=== PATIENT | male | born 1975 | race Caucasian/White ===

== ENCOUNTER 2021-01-30 14:56 | Inpatient (IN) | payer MEDICAID ==
[~2021-01-30] VITALS: Ht 180.3 cm; Wt 61.4 kg
[2021-01-30] MEDS ORDERED: LORazepam 2 MG TABLET PO ONE (18:15)
[2021-01-30 18:35] LABS: BASOPHILS % (AUTO) 1.1 % (0.0-2.0); EOSINOPHILS % (AUTO) 1.6 % (1.0-6.0); HEMATOCRIT 41.5 % (41-53); HEMOGLOBIN 13.6 g/dL (13.5-17.5); LYMPHOCYTES # (AUTO) 1.9 K/uL (1.0-4.8); LYMPHOCYTES % (AUTO) 22.7 % (22.0-44.0); MEAN CORPUSCULAR HEMOGLOBIN 29.6 pg (26.0-34.0); MEAN CORPUSCULAR HGB CONC 32.9 G/dL (31.0-37.0); MEAN CORPUSCULAR VOLUME 90 fL (80-100); MONOCYTES # (AUTO) 0.9 K/uL (0.1-1.0); MONOCYTES % (AUTO) 10.4 % (2.0-9.0); NEUTROPHILS # (AUTO) 5.3 K/uL (1.8-7.7); NEUTROPHILS % (AUTO) 64.2 % (40.0-70.0); PLATELET COUNT (AUTO) 301 K/uL (150-450); RED BLOOD CELL COUNT(AUTO) 4.61 MIL/uL (4.50-5.90); RED CELL DISTRIBUTION WIDTH 13.7 % (11.5-14.5)
[2021-01-30 18:53] LABS: ANION GAP 4 mmol/L (8-16); CARBON DIOXIDE 32 mmol/L (22-29); CHLORIDE 107 mmol/L (98-107); CREATININE 0.74 mg/dL (0.60-1.30); GLOMERULAR FILTR. RATE CALC > 60 mL/min (>60); GLUCOSE,RANDOM 89 mg/dL (70-110); POTASSIUM 3.6 mmol/L (3.5-5.1); SODIUM SERUM 143 mmol/L (136-145); UREA NITROGEN, BLOOD 12 mg/dL (7-18)
[2021-01-30 18:58] LABS: ALANINE AMINOTRANSFERASE 24 U/L (12-78); ALBUMIN 3.7 g/dL (3.4-5.0); ALKALINE PHOSPHATASE 67 U/L (46-116); ASPARTATE AMINOTRANSFERASE 18 U/L (15-37); BILIRUBIN,TOTAL 0.4 mg/dL (0.1-1.0); TOTAL PROTEIN, SERUM 7.3 g/dL (6.4-8.2)
[2021-01-30] MEDS ORDERED: PROMETHAZINE HCL 25 MG TABLET PO PRN ×2 (19:15→21:30)
[2021-01-30] MEDS ORDERED: HydrOXYzine PAMOATE 50 MG CAPSULE PO PRN (19:15)
[2021-01-30] MEDS ORDERED: TUBERCULIN, PURIFIED PROTEIN DERIVATIVE 5 TU/0.1 ML SYRINGE ID ONE (19:15)
[2021-01-30] MEDS ORDERED: GuaiFENesin/D-METHORPHAN [SUGAR-FREE] 200-20MG/10 ML SYRUP UDCUP PO PRN (19:15)
[2021-01-30 19:50] LABS: COVID AG,FIA SOURCE NASOPHARYNGEAL
[2021-01-30] MEDS ORDERED: MAGNESIUM HYDROXIDE SUSPENSION 30 ML UDCUP PO PRN (21:30)
[2021-01-30] MEDS ORDERED: ACETAMINOPHEN 325 MG TABLET PO PRN (21:30)
[2021-01-30] MEDS ORDERED: LOPERAMIDE HCL 2 MG CAPSULE PO PRN (21:30)
[2021-01-30] MEDS ORDERED: MAG HYDROX/AL HYDROX/SIMETH ES 30 ML SUSPENSION UDCUP PO PRN (21:30)
[2021-01-30] MEDS: OLANZapine 5 MG RAPDIS TABLET PO SCH (23:43)
[2021-01-31 00:30] VITALS: BP 110/79
[2021-01-31] MEDS: THIAMINE 100 MG TABLET PO SCH ×3 (08:48→17:13)
[2021-01-31] MEDS: OMEGA-3/DHA/EPA/FISH OIL 1,000 MG CAPSULE PO SCH (08:48)
[2021-01-31] MEDS: MULTIVITAMINS WITH MINERALS, THERAPEUTIC TABLET PO SCH (08:49)
[2021-01-31] MEDS: FLUoxetine HCL 20 MG CAPSULE PO SCH (08:49)
[2021-01-31] MEDS: FOLIC ACID 1 MG TABLET PO SCH (08:49)
[2021-01-31] MEDS: NALTREXONE HCL 50 MG TABLET PO SCH (08:49)
[2021-01-31 15:16] LABS: AMPHET/METH SCREEN,URINE POSITIVE (NEGATIVE); BARBITURATE SCREEN, URINE NEGATIVE (NEGATIVE); BENZODIAZEPINES SCREEN,URINE NEGATIVE (NEGATIVE); CANNABINOID SCREEN,URINE POSITIVE (NEGATIVE); COCAINE SCREEN,URINE NEGATIVE (NEGATIVE); METHADONE SCREEN, URINE NEGATIVE (NEGATIVE); OPIATE SCREEN,URINE NEGATIVE (NEGATIVE)
[2021-01-31 15:18] LABS: PHENCYCLIDINE SCREEN,URINE NEGATIVE (NEGATIVE)
[2021-01-31 16:00] VITALS: BP 98/69
[2021-01-31] MEDS: OLANZapine 5 MG RAPDIS TABLET PO PRN (17:14)
[2021-01-31] MEDS: OLANZapine 5 MG RAPDIS TABLET PO SCH (20:25)
[2021-01-31] MEDS: MELATONIN 5 MG TABLET PO SCH (20:30)
[2021-02-01 08:51] VITALS: BP 112/65
[2021-02-01] MEDS: FLUoxetine HCL 20 MG CAPSULE PO SCH (09:28)
[2021-02-01] MEDS: OMEGA-3/DHA/EPA/FISH OIL 1,000 MG CAPSULE PO SCH (09:28)
[2021-02-01] MEDS: FOLIC ACID 1 MG TABLET PO SCH (09:28)
[2021-02-01] MEDS: MULTIVITAMINS WITH MINERALS, THERAPEUTIC TABLET PO SCH (09:28)
[2021-02-01] MEDS: THIAMINE 100 MG TABLET PO SCH ×2 (09:28→17:32)
[2021-02-01] MEDS: NALTREXONE HCL 50 MG TABLET PO SCH (09:30)
[2021-02-01 17:00] VITALS: BP 109/64
[2021-02-01] MEDS: OLANZapine 5 MG RAPDIS TABLET PO PRN (17:33)
[2021-02-01] MEDS: MELATONIN 5 MG TABLET PO SCH (21:30)
[2021-02-01] MEDS: OLANZapine 10 MG RAPDIS TABLET PO SCH (21:30)
[2021-02-02 08:52] VITALS: BP 110/62
[2021-02-02] MEDS: THIAMINE 100 MG TABLET PO SCH ×2 (09:07→16:17)
[2021-02-02] MEDS: OMEGA-3/DHA/EPA/FISH OIL 1,000 MG CAPSULE PO SCH (09:07)
[2021-02-02] MEDS: FLUoxetine HCL 20 MG CAPSULE PO SCH (09:07)
[2021-02-02] MEDS: MULTIVITAMINS WITH MINERALS, THERAPEUTIC TABLET PO SCH (09:07)
[2021-02-02] MEDS: FOLIC ACID 1 MG TABLET PO SCH (09:07)
[2021-02-02] MEDS: NALTREXONE HCL 50 MG TABLET PO SCH (09:07)
[2021-02-02 16:39] VITALS: BP 124/74
[2021-02-02] MEDS: MELATONIN 5 MG TABLET PO SCH (20:13)
[2021-02-02] MEDS: OLANZapine 10 MG RAPDIS TABLET PO SCH (20:13)
[2021-02-03 08:00] VITALS: BP 113/75
[2021-02-03] MEDS: NALTREXONE HCL 50 MG TABLET PO SCH (08:47)
[2021-02-03] MEDS: OMEGA-3/DHA/EPA/FISH OIL 1,000 MG CAPSULE PO SCH (08:48)
[2021-02-03] MEDS: THIAMINE 100 MG TABLET PO SCH ×2 (08:48→16:05)
[2021-02-03] MEDS: MULTIVITAMINS WITH MINERALS, THERAPEUTIC TABLET PO SCH (08:48)
[2021-02-03] MEDS: FOLIC ACID 1 MG TABLET PO SCH (08:49)
[2021-02-03] MEDS: FLUoxetine HCL 20 MG CAPSULE PO SCH (08:49)
[2021-02-03] MEDS: NICOTINE 21 MG/24 HOUR PATCH TD SCH (08:50)
[2021-02-03] MEDS ORDERED: NICOTINE 21 MG/24 HOUR PATCH TD SCH (09:00)
[2021-02-03 17:09] VITALS: BP 109/67
[2021-02-03] MEDS: OLANZapine 10 MG RAPDIS TABLET PO SCH (20:11)
[2021-02-03] MEDS: DIVALPROEX SODIUM 250 MG ER TABLET PO SCH (20:11)
[2021-02-03] MEDS: MELATONIN 5 MG TABLET PO SCH (20:11)
[2021-02-04 02:00] VITALS: BP 106/65
[2021-02-04] MEDS: FOLIC ACID 1 MG TABLET PO SCH (10:01)
[2021-02-04] MEDS: NALTREXONE HCL 50 MG TABLET PO SCH (10:01)
[2021-02-04] MEDS: THIAMINE 100 MG TABLET PO SCH ×2 (10:01→16:09)
[2021-02-04] MEDS: MULTIVITAMINS WITH MINERALS, THERAPEUTIC TABLET PO SCH (10:01)
[2021-02-04] MEDS: NICOTINE 21 MG/24 HOUR PATCH TD SCH (10:02)
[2021-02-04] MEDS: FLUoxetine HCL 20 MG CAPSULE PO SCH (10:02)
[2021-02-04] MEDS: OMEGA-3/DHA/EPA/FISH OIL 1,000 MG CAPSULE PO SCH (10:05)
[2021-02-04 16:00] VITALS: BP 116/72
[2021-02-04] MEDS: DIVALPROEX SODIUM 250 MG ER TABLET PO SCH (20:11)
[2021-02-04] MEDS: MELATONIN 5 MG TABLET PO SCH (20:11)
[2021-02-04] MEDS: OLANZapine 10 MG RAPDIS TABLET PO SCH (20:12)
[2021-02-05 08:25] VITALS: BP 108/74
[2021-02-05] MEDS: MULTIVITAMINS WITH MINERALS, THERAPEUTIC TABLET PO SCH (09:27)
[2021-02-05] MEDS: OMEGA-3/DHA/EPA/FISH OIL 1,000 MG CAPSULE PO SCH (09:27)
[2021-02-05] MEDS: FLUoxetine HCL 20 MG CAPSULE PO SCH (09:27)
[2021-02-05] MEDS: FOLIC ACID 1 MG TABLET PO SCH (09:27)
[2021-02-05] MEDS: NICOTINE 21 MG/24 HOUR PATCH TD SCH (09:28)
[2021-02-05] MEDS: NALTREXONE HCL 50 MG TABLET PO SCH (09:28)
[2021-02-05] MEDS: THIAMINE 100 MG TABLET PO SCH ×2 (09:28→16:06)
[2021-02-05 13:17] LABS: COVID AG,FIA SOURCE NASAL SWAB
[2021-02-05 16:00] VITALS: BP 100/65
[2021-02-05] MEDS: MELATONIN 5 MG TABLET PO SCH (20:13)
[2021-02-05] MEDS: OLANZapine 10 MG RAPDIS TABLET PO SCH (20:14)
[2021-02-05] MEDS: DIVALPROEX SODIUM 250 MG ER TABLET PO SCH (21:14)
[2021-02-06] MEDS: THIAMINE 100 MG TABLET PO SCH ×2 (09:28→16:05)
[2021-02-06] MEDS: FLUoxetine HCL 20 MG CAPSULE PO SCH (09:28)
[2021-02-06] MEDS: OMEGA-3/DHA/EPA/FISH OIL 1,000 MG CAPSULE PO SCH (09:28)
[2021-02-06] MEDS: FOLIC ACID 1 MG TABLET PO SCH (09:28)
[2021-02-06] MEDS: MULTIVITAMINS WITH MINERALS, THERAPEUTIC TABLET PO SCH (09:28)
[2021-02-06] MEDS: NICOTINE 21 MG/24 HOUR PATCH TD SCH (09:29)
[2021-02-06] MEDS: NALTREXONE HCL 50 MG TABLET PO SCH (09:29)
[2021-02-06 17:19] VITALS: BP 130/80
[2021-02-06] MEDS: DIVALPROEX SODIUM 250 MG ER TABLET PO SCH (20:01)
[2021-02-06] MEDS: OLANZapine 10 MG RAPDIS TABLET PO SCH (20:01)
[2021-02-06] MEDS: MELATONIN 5 MG TABLET PO SCH (20:01)
[2021-02-06] MEDS: ZOLPIDEM TARTRATE 10 MG TABLET PO PRN (22:30)
[2021-02-07 08:30] VITALS: BP 115/77
[2021-02-07] MEDS: NALTREXONE HCL 50 MG TABLET PO SCH (08:45)
[2021-02-07] MEDS: THIAMINE 100 MG TABLET PO SCH ×2 (08:45→17:19)
[2021-02-07] MEDS: FOLIC ACID 1 MG TABLET PO SCH (08:46)
[2021-02-07] MEDS: NICOTINE 21 MG/24 HOUR PATCH TD SCH (08:46)
[2021-02-07] MEDS: FLUoxetine HCL 20 MG CAPSULE PO SCH (08:46)
[2021-02-07] MEDS: OMEGA-3/DHA/EPA/FISH OIL 1,000 MG CAPSULE PO SCH (08:46)
[2021-02-07] MEDS: MULTIVITAMINS WITH MINERALS, THERAPEUTIC TABLET PO SCH (08:46)
[2021-02-07 16:57] VITALS: BP 103/64
[2021-02-07] MEDS: OLANZapine 5 MG RAPDIS TABLET PO PRN (17:19)
[2021-02-07] MEDS: MELATONIN 5 MG TABLET PO SCH (21:01)
[2021-02-07] MEDS: OLANZapine 10 MG RAPDIS TABLET PO SCH (21:01)
[2021-02-07] MEDS: DIVALPROEX SODIUM 250 MG ER TABLET PO SCH (21:02)
[2021-02-08 00:30] VITALS: BP 120/86
[2021-02-08] MEDS: LORazepam 2 MG TABLET PO PRN (00:37)
[2021-02-08] MEDS: ZOLPIDEM TARTRATE 10 MG TABLET PO PRN (00:37)
[2021-02-08 09:00] VITALS: BP 113/71
[2021-02-08] MEDS: FOLIC ACID 1 MG TABLET PO SCH ×2 (09:00→09:14)
[2021-02-08] MEDS: NALTREXONE HCL 50 MG TABLET PO SCH ×2 (09:00→09:14)
[2021-02-08] MEDS: FLUoxetine HCL 20 MG CAPSULE PO SCH ×2 (09:00→09:14)
[2021-02-08] MEDS: THIAMINE 100 MG TABLET PO SCH ×3 (09:00→17:15)
[2021-02-08] MEDS: MULTIVITAMINS WITH MINERALS, THERAPEUTIC TABLET PO SCH ×2 (09:00→09:14)
[2021-02-08] MEDS: NICOTINE 21 MG/24 HOUR PATCH TD SCH ×2 (09:00→09:15)
[2021-02-08] MEDS: OMEGA-3/DHA/EPA/FISH OIL 1,000 MG CAPSULE PO SCH ×2 (09:00→09:14)
[2021-02-08] MEDS: MELATONIN 5 MG TABLET PO SCH (20:54)
[2021-02-08] MEDS: OLANZapine 10 MG RAPDIS TABLET PO SCH (20:54)
[2021-02-08] MEDS: MIRTAZAPINE 15 MG TABLET PO SCH (20:54)
[2021-02-08] MEDS: DIVALPROEX SODIUM 250 MG ER TABLET PO SCH (20:54)
[2021-02-09] MEDS: OMEGA-3/DHA/EPA/FISH OIL 1,000 MG CAPSULE PO SCH ×2 (09:00→13:02)
[2021-02-09] MEDS: MULTIVITAMINS WITH MINERALS, THERAPEUTIC TABLET PO SCH ×2 (09:00→13:02)
[2021-02-09] MEDS: NICOTINE 21 MG/24 HOUR PATCH TD SCH ×2 (09:00→13:00)
[2021-02-09] MEDS: FLUoxetine HCL 20 MG CAPSULE PO SCH ×2 (09:00→13:02)
[2021-02-09] MEDS: THIAMINE 100 MG TABLET PO SCH (09:00)
[2021-02-09] MEDS: NALTREXONE HCL 50 MG TABLET PO SCH ×2 (09:00→13:02)
[2021-02-09] MEDS: FOLIC ACID 1 MG TABLET PO SCH (09:00)
[2021-02-09 09:20] VITALS: BP 136/76
[2021-02-09] MEDS ORDERED: MIRT-89 PO (14:31)
[2021-02-09] MEDS ORDERED: MELA5TAB40 PO (14:31)
[2021-02-09] MEDS ORDERED: NALT50TA PO (14:31)
[2021-02-09] MEDS ORDERED: OMEG-135 PO (14:31)
[2021-02-09] MEDS ORDERED: OLAN10TA26 PO (14:31)
[2021-02-09] MEDS ORDERED: DIVA-85 PO (14:31)
[2021-02-09 16:30] VITALS: BP 140/90
[2021-02-09] MEDS: MIRTAZAPINE 15 MG TABLET PO SCH (20:03)
[2021-02-09] MEDS: MELATONIN 5 MG TABLET PO SCH (20:03)
[2021-02-09] MEDS: OLANZapine 10 MG RAPDIS TABLET PO SCH (20:03)
[2021-02-09] MEDS: DIVALPROEX SODIUM 250 MG ER TABLET PO SCH (20:03)
[2021-02-09] MEDS: ZOLPIDEM TARTRATE 10 MG TABLET PO PRN (22:28)
[2021-02-10 00:20] VITALS: BP 111/84
[2021-02-10] MEDS: OLANZapine 5 MG RAPDIS TABLET PO PRN (00:25)
[2021-02-10] MEDS: LORazepam 2 MG TABLET PO PRN (00:25)
[2021-02-10 08:24] VITALS: BP 139/103
[2021-02-10] MEDS: MULTIVITAMINS WITH MINERALS, THERAPEUTIC TABLET PO SCH (09:49)
[2021-02-10] MEDS: FLUoxetine HCL 20 MG CAPSULE PO SCH (09:50)
[2021-02-10] MEDS: OMEGA-3/DHA/EPA/FISH OIL 1,000 MG CAPSULE PO SCH (09:50)
[2021-02-10] MEDS: NALTREXONE HCL 50 MG TABLET PO SCH (09:50)
[2021-02-10] MEDS: NICOTINE 21 MG/24 HOUR PATCH TD SCH (09:50)
[2021-02-10 17:22] VITALS: BP 117/83
[2021-02-10] MEDS: MIRTAZAPINE 15 MG TABLET PO SCH (20:09)
[2021-02-10] MEDS: MELATONIN 5 MG TABLET PO SCH (20:09)
[2021-02-10] MEDS: OLANZapine 10 MG RAPDIS TABLET PO SCH (20:09)
[2021-02-10] MEDS: DIVALPROEX SODIUM 250 MG ER TABLET PO SCH (20:09)
[2021-02-10] MEDS: ZOLPIDEM TARTRATE 10 MG TABLET PO PRN (22:10)
[2021-02-11] VITALS: BP 110/80
[2021-02-11] MEDS: LORazepam 2 MG TABLET PO PRN (00:06)
[2021-02-11] MEDS: FLUoxetine HCL 20 MG CAPSULE PO SCH (08:25)
[2021-02-11] MEDS: OMEGA-3/DHA/EPA/FISH OIL 1,000 MG CAPSULE PO SCH (08:25)
[2021-02-11] MEDS: MULTIVITAMINS WITH MINERALS, THERAPEUTIC TABLET PO SCH (08:25)
[2021-02-11] MEDS: NALTREXONE HCL 50 MG TABLET PO SCH (08:25)
[2021-02-11] MEDS: NICOTINE 21 MG/24 HOUR PATCH TD SCH (08:34)
[2021-02-11 09:16] VITALS: BP 96/59
[2021-02-11 16:17] VITALS: BP 135/72
[2021-02-11] MEDS: ZOLPIDEM TARTRATE 10 MG TABLET PO PRN (21:26)
[2021-02-11] MEDS: DIVALPROEX SODIUM 250 MG ER TABLET PO SCH (21:26)
[2021-02-11] MEDS: MIRTAZAPINE 15 MG TABLET PO SCH (21:26)
[2021-02-11] MEDS: MELATONIN 5 MG TABLET PO SCH (21:26)
[2021-02-11] MEDS: OLANZapine 10 MG RAPDIS TABLET PO SCH (21:26)
[2021-02-12 08:48] VITALS: BP 113/69
[2021-02-12] MEDS: MULTIVITAMINS WITH MINERALS, THERAPEUTIC TABLET PO SCH (08:59)
[2021-02-12] MEDS: FLUoxetine HCL 20 MG CAPSULE PO SCH (08:59)
[2021-02-12] MEDS: NALTREXONE HCL 50 MG TABLET PO SCH (08:59)
[2021-02-12] MEDS: NICOTINE 21 MG/24 HOUR PATCH TD SCH (08:59)
[2021-02-12] MEDS: OMEGA-3/DHA/EPA/FISH OIL 1,000 MG CAPSULE PO SCH (08:59)
[2021-02-12 13:20] LABS: COVID AG,FIA SOURCE NASAL SWAB
[2021-02-12 16:10] VITALS: BP 140/95
[2021-02-12] MEDS: MIRTAZAPINE 15 MG TABLET PO SCH (20:53)
[2021-02-12] MEDS: OLANZapine 10 MG RAPDIS TABLET PO SCH (20:53)
[2021-02-12] MEDS: LORazepam 2 MG TABLET PO PRN (20:53)
[2021-02-12] MEDS: DIVALPROEX SODIUM 250 MG ER TABLET PO SCH (20:53)
[2021-02-12] MEDS: MELATONIN 5 MG TABLET PO SCH (20:56)
[2021-02-13 08:00] VITALS: BP 103/63
[2021-02-13] MEDS: MULTIVITAMINS WITH MINERALS, THERAPEUTIC TABLET PO SCH (09:34)
[2021-02-13] MEDS: FLUoxetine HCL 20 MG CAPSULE PO SCH (09:35)
[2021-02-13] MEDS: NALTREXONE HCL 50 MG TABLET PO SCH (09:35)
[2021-02-13] MEDS: OMEGA-3/DHA/EPA/FISH OIL 1,000 MG CAPSULE PO SCH (09:35)
[2021-02-13] MEDS: NICOTINE 21 MG/24 HOUR PATCH TD SCH (09:38)
[2021-02-13 16:00] VITALS: BP 112/73
[2021-02-13] MEDS ORDERED: GABAPENTIN 300 MG CAPSULE PO PRN (19:15)
[2021-02-13] MEDS: ZOLPIDEM TARTRATE 10 MG TABLET PO PRN (20:54)
[2021-02-13] MEDS: OLANZapine 10 MG RAPDIS TABLET PO SCH (20:54)
[2021-02-13] MEDS: MELATONIN 5 MG TABLET PO SCH (20:54)
[2021-02-13] MEDS: MIRTAZAPINE 15 MG TABLET PO SCH (20:54)
[2021-02-13] MEDS: DIVALPROEX SODIUM 250 MG ER TABLET PO SCH (20:54)
[2021-02-14] MEDS: OLANZapine 5 MG RAPDIS TABLET PO PRN (02:28)
[2021-02-14] MEDS: OMEGA-3/DHA/EPA/FISH OIL 1,000 MG CAPSULE PO SCH (08:56)
[2021-02-14] MEDS: MULTIVITAMINS WITH MINERALS, THERAPEUTIC TABLET PO SCH (08:56)
[2021-02-14] MEDS: NALTREXONE HCL 50 MG TABLET PO SCH (08:57)
[2021-02-14] MEDS: FLUoxetine HCL 20 MG CAPSULE PO SCH (08:57)
[2021-02-14] MEDS: NICOTINE 21 MG/24 HOUR PATCH TD SCH (08:58)
[2021-02-14 09:00] VITALS: BP 105/73
[2021-02-14 16:00] VITALS: BP 140/87
[2021-02-14 18:14] VITALS: BP 123/75
[2021-02-14] MEDS ORDERED: FLUO20CA36 PO (19:26)
[2021-02-14] MEDS: OLANZapine 10 MG RAPDIS TABLET PO SCH (20:54)
[2021-02-14] MEDS: MIRTAZAPINE 15 MG TABLET PO SCH (20:54)
[2021-02-14] MEDS: MELATONIN 5 MG TABLET PO SCH (20:54)
[2021-02-14] MEDS: DIVALPROEX SODIUM 250 MG ER TABLET PO SCH (20:54)
[2021-02-14] MEDS: ZOLPIDEM TARTRATE 10 MG TABLET PO PRN (23:32)
[2021-02-15] MEDS: NALTREXONE HCL 50 MG TABLET PO SCH (08:58)
[2021-02-15] MEDS: MULTIVITAMINS WITH MINERALS, THERAPEUTIC TABLET PO SCH (08:58)
[2021-02-15] MEDS: OMEGA-3/DHA/EPA/FISH OIL 1,000 MG CAPSULE PO SCH (08:58)
[2021-02-15] MEDS: NICOTINE 21 MG/24 HOUR PATCH TD SCH (08:58)
[2021-02-15] MEDS: FLUoxetine HCL 20 MG CAPSULE PO SCH (08:58)
[2021-02-15 09:12] VITALS: BP 107/66
== END 2021-02-15 17:57 | disposition home or self-care (01) | DRG 750 ==
LOC: EMS 14:56 → 3EI 20:00
PROVIDERS: ADMIT Psychiatry & Neurology Psychiatry; ATTEND Psychiatry & Neurology Psychiatry
DX: F25.1 Schizoaffective disorder, depressive type (principal); Z59.0 Homelessness; F11.90 Opioid use, unspecified, uncomplicated; F12.90 Cannabis use, unspecified, uncomplicated; F15.10 Other stimulant abuse, uncomplicated; F41.9 Anxiety disorder, unspecified; Z20.822 Contact with and (suspected) exposure to COVID-19; G47.00 Insomnia, unspecified; J44.9 Chronic obstructive pulmonary disease, unspecified; F17.210 Nicotine dependence, cigarettes, uncomplicated; K59.00 Constipation, unspecified; Z79.899 Other long term (current) drug therapy; Z71.6 Tobacco abuse counseling; Z71.51 Drug abuse counseling and surveillance of drug abuser
CPT/HCPCS: 80053; 80164; 80307; 85025; 99285; G0480; Q9967

== ENCOUNTER 2021-02-22 19:48 | Inpatient (IN) | payer MEDICAID ==
[~2021-02-22] VITALS: Ht 180.3 cm; Wt 66.6 kg
[~2021-02-22 19:48] MED LIST: DIVA-85 PO; FLUO20CA36 PO; MELA5TAB40 PO; MIRT-89 PO; NALT50TA PO; OLAN10TA26 PO; OMEG-135 PO
[2021-02-22 20:33] LABS: BASOPHILS % (AUTO) 0.9 % (0.0-2.0); HEMATOCRIT 38.7 % (41-53); HEMOGLOBIN 12.8 g/dL (13.5-17.5); LYMPHOCYTES # (AUTO) 1.9 K/uL (1.0-4.8); LYMPHOCYTES % (AUTO) 20.8 % (22.0-44.0); MEAN CORPUSCULAR HEMOGLOBIN 29.8 pg (26.0-34.0); MEAN CORPUSCULAR HGB CONC 33.1 G/dL (31.0-37.0); MEAN CORPUSCULAR VOLUME 90 fL (80-100); MONOCYTES % (AUTO) 10.7 % (2.0-9.0); NEUTROPHILS # (AUTO) 6.1 K/uL (1.8-7.7); NEUTROPHILS % (AUTO) 65.6 % (40.0-70.0); PLATELET COUNT (AUTO) 273 K/uL (150-450)
[2021-02-22 20:48] LABS: ANION GAP 8 mmol/L (8-16); CALCIUM, TOTAL 8.1 mg/dL (8.8-10.5); CARBON DIOXIDE 27 mmol/L (22-29); CHLORIDE 110 mmol/L (98-107); CREATININE 0.66 mg/dL (0.60-1.30); GLOMERULAR FILTR. RATE CALC > 60 mL/min (>60); GLUCOSE,RANDOM 113 mg/dL (70-110); POTASSIUM 3.2 mmol/L (3.5-5.1); SODIUM SERUM 145 mmol/L (136-145); UREA NITROGEN, BLOOD 14 mg/dL (7-18)
[2021-02-22 20:54] LABS: ALANINE AMINOTRANSFERASE 31 U/L (12-78); ALBUMIN 3.1 g/dL (3.4-5.0); ALKALINE PHOSPHATASE 68 U/L (46-116); ASPARTATE AMINOTRANSFERASE 17 U/L (15-37); BILIRUBIN,TOTAL 0.1 mg/dL (0.1-1.0); TOTAL PROTEIN, SERUM 6.4 g/dL (6.4-8.2)
[2021-02-22 21:01] LABS: VALPROIC ACID < 3 mcg/mL (50-100)
[2021-02-22] MEDS ORDERED: POTASSIUM CHLORIDE 20 MEQ ER TABLET PO ONE (21:30)
[2021-02-22 21:57] LABS: AMPHET/METH SCREEN,URINE POSITIVE (NEGATIVE); BARBITURATE SCREEN, URINE NEGATIVE (NEGATIVE); BENZODIAZEPINES SCREEN,URINE NEGATIVE (NEGATIVE); CANNABINOID SCREEN,URINE POSITIVE (NEGATIVE); COCAINE SCREEN,URINE NEGATIVE (NEGATIVE); METHADONE SCREEN, URINE NEGATIVE (NEGATIVE); OPIATE SCREEN,URINE NEGATIVE (NEGATIVE)
[2021-02-22] MEDS ORDERED: OLANZapine 5 MG RAPDIS TABLET PO PRN (22:00)
[2021-02-22 22:01] LABS: PHENCYCLIDINE SCREEN,URINE NEGATIVE (NEGATIVE)
[2021-02-22 22:10] LABS: COVID AG,FIA SOURCE NASOPHARYNGEAL
[2021-02-23 02:02] VITALS: BP 108/73
[2021-02-23] MEDS ORDERED: INFLUENZA VIRUS VACCINE QVS 2021-22 (6MO+)/PF 60 MCG/0.5 ML SYRINGE IM. ONE (03:00)
[2021-02-23] MEDS ORDERED: DOCUSATE SODIUM 100 MG CAPSULE PO PRN (06:30)
[2021-02-23] MEDS ORDERED: CloNIDine HCL 0.1 MG TABLET PO PRN (06:30)
[2021-02-23] MEDS ORDERED: MAG HYDROX/AL HYDROX/SIMETH ES 30 ML SUSPENSION UDCUP PO PRN ×2 (06:30→08:30)
[2021-02-23] MEDS ORDERED: ONDANSETRON HCL 4 MG TABLET PO PRN (06:30)
[2021-02-23] MEDS ORDERED: ACETAMINOPHEN 325 MG TABLET PO PRN ×2 (06:30→08:30)
[2021-02-23] MEDS ORDERED: ALBUTEROL SULFATE HFA 90 MCG/PUFF 8 GM INHALER IH PRN (06:30)
[2021-02-23] MEDS ORDERED: PETROLATUM,WHITE 28 GM JELLY TP PRN (06:30)
[2021-02-23] MEDS ORDERED: BENZOCAINE/MENTHOL LOZENGE PO PRN (06:30)
[2021-02-23] MEDS ORDERED: MAGNESIUM HYDROXIDE SUSPENSION 30 ML UDCUP PO PRN ×2 (06:30→08:30)
[2021-02-23] MEDS ORDERED: LOPERAMIDE HCL 2 MG CAPSULE PO PRN ×2 (06:30→08:30)
[2021-02-23] MEDS ORDERED: BACITRACIN 28 GM OINTMENT TP PRN (06:30)
[2021-02-23] MEDS ORDERED: OMEPRAZOLE 20 MG CAPSULE PO PRN (06:30)
[2021-02-23] MEDS ORDERED: IBUPROFEN 600 MG TABLET PO PRN (06:30)
[2021-02-23 07:59] LABS: HEMOGLOBIN A1C 5.7 % (3.8-5.6)
[2021-02-23 08:19] LABS: CHOL/HDL RATIO 3.8 (4.2-7.3); FREE T4 (FREE THYROXINE) 0.88 ng/dL (0.76-1.46); POTASSIUM 3.9 mmol/L (3.5-5.1); THYROID STIMULATING HORMONE 0.97 uIU/mL (0.36-3.74)
[2021-02-23] MEDS ORDERED: HydrOXYzine PAMOATE 50 MG CAPSULE PO PRN (08:30)
[2021-02-23] MEDS ORDERED: PROMETHAZINE HCL 25 MG TABLET PO PRN (08:30)
[2021-02-23] MEDS ORDERED: GuaiFENesin/D-METHORPHAN [SUGAR-FREE] 200-20MG/10 ML SYRUP UDCUP PO PRN (08:30)
[2021-02-23 09:06] VITALS: BP 105/64
[2021-02-23] MEDS: FOLIC ACID 1 MG TABLET PO SCH (09:36)
[2021-02-23] MEDS: MULTIVITAMINS WITH MINERALS, THERAPEUTIC TABLET PO SCH (09:36)
[2021-02-23] MEDS: THIAMINE 100 MG TABLET PO SCH ×2 (09:36→17:02)
[2021-02-23] MEDS: NALTREXONE HCL 50 MG TABLET PO SCH (09:37)
[2021-02-23] MEDS: FLUoxetine HCL 20 MG CAPSULE PO SCH (09:37)
[2021-02-23 16:29] VITALS: BP 105/62
[2021-02-23] MEDS ORDERED: OLANZapine 5 MG RAPDIS TABLET PO SCH (21:00)
[2021-02-23] MEDS: DIVALPROEX SODIUM 250 MG ER TABLET PO SCH (21:14)
[2021-02-23] MEDS: OMEGA-3/DHA/EPA/FISH OIL 1,000 MG CAPSULE PO SCH (21:14)
[2021-02-23] MEDS: MIRTAZAPINE 15 MG TABLET PO SCH (21:15)
[2021-02-23] MEDS: MELATONIN 5 MG TABLET PO SCH (21:15)
[2021-02-24 00:17] VITALS: BP 109/63
[2021-02-24] MEDS: ZOLPIDEM TARTRATE 10 MG TABLET PO PRN (00:56)
[2021-02-24] MEDS: LORazepam 2 MG TABLET PO PRN (00:57)
[2021-02-24] MEDS: FLUoxetine HCL 20 MG CAPSULE PO SCH (08:47)
[2021-02-24] MEDS: THIAMINE 100 MG TABLET PO SCH ×2 (08:47→16:39)
[2021-02-24] MEDS: FOLIC ACID 1 MG TABLET PO SCH (08:47)
[2021-02-24] MEDS: MULTIVITAMINS WITH MINERALS, THERAPEUTIC TABLET PO SCH (08:47)
[2021-02-24] MEDS: NALTREXONE HCL 50 MG TABLET PO SCH (08:47)
[2021-02-24 09:15] VITALS: BP 110/68
[2021-02-24 16:36] VITALS: BP 109/68
[2021-02-24] MEDS: DIVALPROEX SODIUM 250 MG ER TABLET PO SCH (20:13)
[2021-02-24] MEDS: OMEGA-3/DHA/EPA/FISH OIL 1,000 MG CAPSULE PO SCH (20:13)
[2021-02-24] MEDS: MIRTAZAPINE 15 MG TABLET PO SCH (20:13)
[2021-02-24] MEDS: OLANZapine 10 MG RAPDIS TABLET PO SCH (20:14)
[2021-02-24] MEDS: MELATONIN 5 MG TABLET PO SCH (20:14)
[2021-02-25 03:36] VITALS: BP 116/70
[2021-02-25 08:38] VITALS: BP 103/61
[2021-02-25] MEDS: MULTIVITAMINS WITH MINERALS, THERAPEUTIC TABLET PO SCH (09:27)
[2021-02-25] MEDS: NALTREXONE HCL 50 MG TABLET PO SCH (09:27)
[2021-02-25] MEDS: FLUoxetine HCL 20 MG CAPSULE PO SCH (09:27)
[2021-02-25] MEDS: FOLIC ACID 1 MG TABLET PO SCH (09:27)
[2021-02-25] MEDS: THIAMINE 100 MG TABLET PO SCH ×2 (09:28→16:31)
[2021-02-25 16:24] VITALS: BP 102/67
[2021-02-25] MEDS: DIVALPROEX SODIUM 250 MG ER TABLET PO SCH (20:54)
[2021-02-25] MEDS: OMEGA-3/DHA/EPA/FISH OIL 1,000 MG CAPSULE PO SCH (20:55)
[2021-02-25] MEDS: MELATONIN 5 MG TABLET PO SCH (20:55)
[2021-02-25] MEDS: MIRTAZAPINE 15 MG TABLET PO SCH (20:55)
[2021-02-25] MEDS: OLANZapine 10 MG RAPDIS TABLET PO SCH (20:55)
[2021-02-25] MEDS: ZOLPIDEM TARTRATE 10 MG TABLET PO PRN (21:55)
[2021-02-25] MEDS: LORazepam 2 MG TABLET PO PRN (23:37)
[2021-02-26 03:18] VITALS: BP 112/64
[2021-02-26] MEDS: FLUoxetine HCL 20 MG CAPSULE PO SCH (09:29)
[2021-02-26] MEDS: MULTIVITAMINS WITH MINERALS, THERAPEUTIC TABLET PO SCH (09:29)
[2021-02-26] MEDS: THIAMINE 100 MG TABLET PO SCH ×2 (09:29→16:43)
[2021-02-26] MEDS: FOLIC ACID 1 MG TABLET PO SCH (09:29)
[2021-02-26] MEDS: NALTREXONE HCL 50 MG TABLET PO SCH (09:30)
[2021-02-26 16:26] VITALS: BP 106/70
[2021-02-26] MEDS: MIRTAZAPINE 15 MG TABLET PO SCH (20:45)
[2021-02-26] MEDS: DIVALPROEX SODIUM 250 MG ER TABLET PO SCH (20:46)
[2021-02-26] MEDS: OMEGA-3/DHA/EPA/FISH OIL 1,000 MG CAPSULE PO SCH (20:46)
[2021-02-26] MEDS: MELATONIN 5 MG TABLET PO SCH (20:46)
[2021-02-26] MEDS: OLANZapine 10 MG RAPDIS TABLET PO SCH (20:46)
[2021-02-26] MEDS: LORazepam 2 MG TABLET PO PRN (23:26)
[2021-02-26] MEDS: ZOLPIDEM TARTRATE 10 MG TABLET PO PRN (23:26)
[2021-02-27 01:44] VITALS: BP 137/87
[2021-02-27 07:35] LABS: COVID AG,FIA SOURCE NASOPHARYNGEAL
[2021-02-27 09:01] VITALS: BP 115/70
[2021-02-27] MEDS: NALTREXONE HCL 50 MG TABLET PO SCH (09:13)
[2021-02-27] MEDS: MULTIVITAMINS WITH MINERALS, THERAPEUTIC TABLET PO SCH (09:13)
[2021-02-27] MEDS: FLUoxetine HCL 20 MG CAPSULE PO SCH (09:13)
[2021-02-27] MEDS: FOLIC ACID 1 MG TABLET PO SCH (09:13)
[2021-02-27] MEDS: THIAMINE 100 MG TABLET PO SCH ×2 (09:13→16:37)
[2021-02-27 16:27] VITALS: BP 101/60
[2021-02-27] MEDS: OMEGA-3/DHA/EPA/FISH OIL 1,000 MG CAPSULE PO SCH (20:24)
[2021-02-27] MEDS: DIVALPROEX SODIUM 250 MG ER TABLET PO SCH (20:24)
[2021-02-27] MEDS: MIRTAZAPINE 30 MG TABLET PO SCH (20:25)
[2021-02-27] MEDS: OLANZapine 10 MG RAPDIS TABLET PO SCH (20:25)
[2021-02-27] MEDS: MELATONIN 5 MG TABLET PO SCH (20:25)
[2021-02-27] MEDS: ZOLPIDEM TARTRATE 10 MG TABLET PO PRN (22:52)
[2021-02-28 01:54] VITALS: BP 114/70
[2021-02-28] MEDS: FLUoxetine HCL 20 MG CAPSULE PO SCH (08:37)
[2021-02-28] MEDS: FOLIC ACID 1 MG TABLET PO SCH (08:37)
[2021-02-28] MEDS: THIAMINE 100 MG TABLET PO SCH ×2 (08:37→16:31)
[2021-02-28] MEDS: NALTREXONE HCL 50 MG TABLET PO SCH (08:37)
[2021-02-28] MEDS: MULTIVITAMINS WITH MINERALS, THERAPEUTIC TABLET PO SCH (08:37)
[2021-02-28 08:51] VITALS: BP 99/63
[2021-02-28 16:32] VITALS: BP 117/83
[2021-02-28] MEDS: MELATONIN 5 MG TABLET PO SCH (20:24)
[2021-02-28] MEDS: OMEGA-3/DHA/EPA/FISH OIL 1,000 MG CAPSULE PO SCH (20:24)
[2021-02-28] MEDS: MIRTAZAPINE 30 MG TABLET PO SCH (20:24)
[2021-02-28] MEDS: OLANZapine 10 MG RAPDIS TABLET PO SCH (20:24)
[2021-02-28] MEDS: DIVALPROEX SODIUM 250 MG ER TABLET PO SCH (20:25)
[2021-02-28] MEDS: ZOLPIDEM TARTRATE 10 MG TABLET PO PRN (21:58)
[2021-03-01] MEDS: LORazepam 2 MG TABLET PO PRN ×2 (00:05→22:18)
[2021-03-01 00:58] VITALS: BP 116/75
[2021-03-01 09:05] VITALS: BP 92/57
[2021-03-01] MEDS: FOLIC ACID 1 MG TABLET PO SCH (10:20)
[2021-03-01] MEDS: FLUoxetine HCL 20 MG CAPSULE PO SCH (10:20)
[2021-03-01] MEDS: THIAMINE 100 MG TABLET PO SCH ×2 (10:20→17:24)
[2021-03-01] MEDS: NALTREXONE HCL 50 MG TABLET PO SCH (10:21)
[2021-03-01] MEDS: MULTIVITAMINS WITH MINERALS, THERAPEUTIC TABLET PO SCH (10:21)
[2021-03-01 16:23] VITALS: BP 106/65
[2021-03-01] MEDS: DIVALPROEX SODIUM 250 MG ER TABLET PO SCH (20:46)
[2021-03-01] MEDS: OLANZapine 10 MG RAPDIS TABLET PO SCH (20:46)
[2021-03-01] MEDS: MELATONIN 5 MG TABLET PO SCH (20:46)
[2021-03-01] MEDS: OMEGA-3/DHA/EPA/FISH OIL 1,000 MG CAPSULE PO SCH (20:46)
[2021-03-01] MEDS: MIRTAZAPINE 30 MG TABLET PO SCH (20:47)
[2021-03-01] MEDS: ZOLPIDEM TARTRATE 10 MG TABLET PO PRN (23:45)
[2021-03-02 01:03] VITALS: BP 108/68
[2021-03-02 08:33] VITALS: BP 105/65
[2021-03-02] MEDS: MULTIVITAMINS WITH MINERALS, THERAPEUTIC TABLET PO SCH (09:25)
[2021-03-02] MEDS: NALTREXONE HCL 50 MG TABLET PO SCH (09:26)
[2021-03-02] MEDS: THIAMINE 100 MG TABLET PO SCH ×2 (09:26→16:15)
[2021-03-02] MEDS: FLUoxetine HCL 20 MG CAPSULE PO SCH (09:26)
[2021-03-02] MEDS: FOLIC ACID 1 MG TABLET PO SCH (09:26)
[2021-03-02 16:16] VITALS: BP 106/62
[2021-03-02] MEDS: DIVALPROEX SODIUM 250 MG ER TABLET PO SCH (20:24)
[2021-03-02] MEDS: MIRTAZAPINE 30 MG TABLET PO SCH (20:25)
[2021-03-02] MEDS: OLANZapine 10 MG RAPDIS TABLET PO SCH (20:25)
[2021-03-02] MEDS: MELATONIN 5 MG TABLET PO SCH (20:25)
[2021-03-02] MEDS: OMEGA-3/DHA/EPA/FISH OIL 1,000 MG CAPSULE PO SCH (20:25)
[2021-03-03 00:30] VITALS: BP 137/82
[2021-03-03] MEDS: ZOLPIDEM TARTRATE 10 MG TABLET PO PRN ×2 (00:38→22:06)
[2021-03-03] MEDS: FOLIC ACID 1 MG TABLET PO SCH (08:18)
[2021-03-03] MEDS: THIAMINE 100 MG TABLET PO SCH ×2 (08:18→16:48)
[2021-03-03] MEDS: FLUoxetine HCL 20 MG CAPSULE PO SCH (08:18)
[2021-03-03] MEDS: MULTIVITAMINS WITH MINERALS, THERAPEUTIC TABLET PO SCH (08:18)
[2021-03-03] MEDS: NALTREXONE HCL 50 MG TABLET PO SCH (08:18)
[2021-03-03 08:48] VITALS: BP 100/60
[2021-03-03] MEDS ORDERED: BuPROPion HCL XL 150 MG ER TABLET PO SCH (09:00)
[2021-03-03 16:30] VITALS: BP 108/65
[2021-03-03] MEDS: DIVALPROEX SODIUM 250 MG ER TABLET PO SCH (20:59)
[2021-03-03] MEDS: OMEGA-3/DHA/EPA/FISH OIL 1,000 MG CAPSULE PO SCH (20:59)
[2021-03-03] MEDS: OLANZapine 10 MG RAPDIS TABLET PO SCH (20:59)
[2021-03-03] MEDS: MELATONIN 5 MG TABLET PO SCH (20:59)
[2021-03-03] MEDS: MIRTAZAPINE 30 MG TABLET PO SCH (20:59)
[2021-03-04 00:42] VITALS: BP 114/87
[2021-03-04] MEDS: MULTIVITAMINS WITH MINERALS, THERAPEUTIC TABLET PO SCH (09:19)
[2021-03-04] MEDS: BuPROPion HCL XL 150 MG ER TABLET PO SCH (09:19)
[2021-03-04] MEDS: THIAMINE 100 MG TABLET PO SCH ×2 (09:19→16:57)
[2021-03-04] MEDS: FLUoxetine HCL 20 MG CAPSULE PO SCH (09:19)
[2021-03-04] MEDS: NALTREXONE HCL 50 MG TABLET PO SCH (09:19)
[2021-03-04] MEDS: FOLIC ACID 1 MG TABLET PO SCH (09:19)
[2021-03-04 16:37] VITALS: BP 106/70
[2021-03-04] MEDS: MIRTAZAPINE 30 MG TABLET PO SCH (21:05)
[2021-03-04] MEDS: DIVALPROEX SODIUM 250 MG ER TABLET PO SCH (21:05)
[2021-03-04] MEDS: OMEGA-3/DHA/EPA/FISH OIL 1,000 MG CAPSULE PO SCH (21:05)
[2021-03-04] MEDS: OLANZapine 10 MG RAPDIS TABLET PO SCH (21:05)
[2021-03-04] MEDS: MELATONIN 5 MG TABLET PO SCH (21:05)
[2021-03-04] MEDS: ZOLPIDEM TARTRATE 10 MG TABLET PO PRN (23:08)
[2021-03-05] MEDS: LORazepam 2 MG TABLET PO PRN (00:44)
[2021-03-05 02:08] VITALS: BP 108/62
[2021-03-05] MEDS: BuPROPion HCL XL 150 MG ER TABLET PO SCH (08:49)
[2021-03-05] MEDS: FLUoxetine HCL 20 MG CAPSULE PO SCH (08:49)
[2021-03-05] MEDS: MULTIVITAMINS WITH MINERALS, THERAPEUTIC TABLET PO SCH (08:49)
[2021-03-05] MEDS: NALTREXONE HCL 50 MG TABLET PO SCH (08:50)
[2021-03-05 09:00] VITALS: BP 121/68
[2021-03-05 16:21] VITALS: BP 106/64
[2021-03-05] MEDS: MELATONIN 5 MG TABLET PO SCH (20:30)
[2021-03-05] MEDS: OLANZapine 10 MG RAPDIS TABLET PO SCH (20:30)
[2021-03-05] MEDS: MIRTAZAPINE 30 MG TABLET PO SCH (20:30)
[2021-03-05] MEDS: OMEGA-3/DHA/EPA/FISH OIL 1,000 MG CAPSULE PO SCH (20:30)
[2021-03-05] MEDS: DIVALPROEX SODIUM 250 MG ER TABLET PO SCH (20:30)
[2021-03-05] MEDS: ZOLPIDEM TARTRATE 10 MG TABLET PO PRN (22:58)
[2021-03-06 01:12] VITALS: BP 105/68
[2021-03-06 07:38] LABS: COVID AG,FIA SOURCE NASOPHARYNGEAL
[2021-03-06 08:41] VITALS: BP 125/84
[2021-03-06] MEDS: BuPROPion HCL XL 150 MG ER TABLET PO SCH (09:14)
[2021-03-06] MEDS: NALTREXONE HCL 50 MG TABLET PO SCH (09:14)
[2021-03-06] MEDS: FLUoxetine HCL 20 MG CAPSULE PO SCH (09:14)
[2021-03-06] MEDS: MULTIVITAMINS WITH MINERALS, THERAPEUTIC TABLET PO SCH (09:15)
[2021-03-06 16:33] VITALS: BP 122/64
[2021-03-06] MEDS: DIVALPROEX SODIUM 250 MG ER TABLET PO SCH (20:01)
[2021-03-06] MEDS: OMEGA-3/DHA/EPA/FISH OIL 1,000 MG CAPSULE PO SCH (20:02)
[2021-03-06] MEDS: OLANZapine 10 MG RAPDIS TABLET PO SCH (20:02)
[2021-03-06] MEDS: MIRTAZAPINE 30 MG TABLET PO SCH (20:02)
[2021-03-06] MEDS: MELATONIN 5 MG TABLET PO SCH (20:02)
[2021-03-07 00:26] VITALS: BP 112/61
[2021-03-07] MEDS: ZOLPIDEM TARTRATE 10 MG TABLET PO PRN (01:30)
[2021-03-07 08:31] VITALS: BP 119/66
[2021-03-07] MEDS: FLUoxetine HCL 20 MG CAPSULE PO SCH (10:00)
[2021-03-07] MEDS: MULTIVITAMINS WITH MINERALS, THERAPEUTIC TABLET PO SCH (10:00)
[2021-03-07] MEDS: BuPROPion HCL XL 150 MG ER TABLET PO SCH (10:01)
[2021-03-07] MEDS: NALTREXONE HCL 50 MG TABLET PO SCH (10:01)
[2021-03-07 16:22] VITALS: BP 110/69
[2021-03-07] MEDS: OMEGA-3/DHA/EPA/FISH OIL 1,000 MG CAPSULE PO SCH (20:37)
[2021-03-07] MEDS: MIRTAZAPINE 30 MG TABLET PO SCH (20:37)
[2021-03-07] MEDS: MELATONIN 5 MG TABLET PO SCH (20:37)
[2021-03-07] MEDS: DIVALPROEX SODIUM 250 MG ER TABLET PO SCH (20:38)
[2021-03-07] MEDS: OLANZapine 10 MG RAPDIS TABLET PO SCH (20:38)
[2021-03-08 03:39] VITALS: BP 114/77
[2021-03-08 08:25] VITALS: BP 102/61
[2021-03-08] MEDS: FLUoxetine HCL 20 MG CAPSULE PO SCH (08:36)
[2021-03-08] MEDS: MULTIVITAMINS WITH MINERALS, THERAPEUTIC TABLET PO SCH (08:36)
[2021-03-08] MEDS: NALTREXONE HCL 50 MG TABLET PO SCH (08:36)
[2021-03-08] MEDS: BuPROPion HCL XL 150 MG ER TABLET PO SCH (08:36)
[2021-03-08 16:28] VITALS: BP 110/61
[2021-03-08] MEDS: MELATONIN 5 MG TABLET PO SCH (20:24)
[2021-03-08] MEDS: DIVALPROEX SODIUM 250 MG ER TABLET PO SCH (20:24)
[2021-03-08] MEDS: OLANZapine 10 MG RAPDIS TABLET PO SCH (20:24)
[2021-03-08] MEDS: MIRTAZAPINE 30 MG TABLET PO SCH (20:24)
[2021-03-08] MEDS: OMEGA-3/DHA/EPA/FISH OIL 1,000 MG CAPSULE PO SCH (20:24)
[2021-03-08] MEDS: ZOLPIDEM TARTRATE 10 MG TABLET PO PRN (23:01)
[2021-03-09 01:07] VITALS: BP 139/83
[2021-03-09 08:15] VITALS: BP 110/63
[2021-03-09] MEDS: MULTIVITAMINS WITH MINERALS, THERAPEUTIC TABLET PO SCH (09:03)
[2021-03-09] MEDS: NALTREXONE HCL 50 MG TABLET PO SCH (09:03)
[2021-03-09] MEDS: FLUoxetine HCL 20 MG CAPSULE PO SCH (09:03)
[2021-03-09] MEDS: BuPROPion HCL XL 150 MG ER TABLET PO SCH (09:03)
[2021-03-09 16:17] VITALS: BP 133/80
[2021-03-09] MEDS: DIVALPROEX SODIUM 250 MG ER TABLET PO SCH (20:07)
[2021-03-09] MEDS: OMEGA-3/DHA/EPA/FISH OIL 1,000 MG CAPSULE PO SCH (20:07)
[2021-03-09] MEDS: MELATONIN 5 MG TABLET PO SCH (20:08)
[2021-03-09] MEDS: MIRTAZAPINE 30 MG TABLET PO SCH (20:08)
[2021-03-09] MEDS: OLANZapine 10 MG RAPDIS TABLET PO SCH (20:08)
[2021-03-10] MEDS: ZOLPIDEM TARTRATE 10 MG TABLET PO PRN ×2 (01:20→21:42)
[2021-03-10 01:31] VITALS: BP 100/66
[2021-03-10] MEDS: NALTREXONE HCL 50 MG TABLET PO SCH (08:08)
[2021-03-10] MEDS: BuPROPion HCL XL 150 MG ER TABLET PO SCH (08:08)
[2021-03-10] MEDS: FLUoxetine HCL 20 MG CAPSULE PO SCH (08:08)
[2021-03-10] MEDS: MULTIVITAMINS WITH MINERALS, THERAPEUTIC TABLET PO SCH (08:08)
[2021-03-10 08:42] VITALS: BP 105/60
[2021-03-10 16:43] VITALS: BP 111/66
[2021-03-10] MEDS: MELATONIN 5 MG TABLET PO SCH (20:03)
[2021-03-10] MEDS: OLANZapine 10 MG RAPDIS TABLET PO SCH (20:03)
[2021-03-10] MEDS: DIVALPROEX SODIUM 250 MG ER TABLET PO SCH (20:03)
[2021-03-10] MEDS: MIRTAZAPINE 30 MG TABLET PO SCH (20:03)
[2021-03-10] MEDS: OMEGA-3/DHA/EPA/FISH OIL 1,000 MG CAPSULE PO SCH (20:03)
[2021-03-11 00:58] VITALS: BP 126/75
[2021-03-11 08:16] VITALS: BP 99/57
[2021-03-11] MEDS: NALTREXONE HCL 50 MG TABLET PO SCH (08:30)
[2021-03-11] MEDS: BuPROPion HCL XL 150 MG ER TABLET PO SCH (08:30)
[2021-03-11] MEDS: FLUoxetine HCL 20 MG CAPSULE PO SCH (08:30)
[2021-03-11] MEDS: MULTIVITAMINS WITH MINERALS, THERAPEUTIC TABLET PO SCH (08:30)
[2021-03-11 16:35] VITALS: BP 116/74
[2021-03-11] MEDS: MELATONIN 5 MG TABLET PO SCH (20:07)
[2021-03-11] MEDS: OMEGA-3/DHA/EPA/FISH OIL 1,000 MG CAPSULE PO SCH (20:07)
[2021-03-11] MEDS: OLANZapine 10 MG RAPDIS TABLET PO SCH (20:07)
[2021-03-11] MEDS: MIRTAZAPINE 30 MG TABLET PO SCH (20:07)
[2021-03-11] MEDS: DIVALPROEX SODIUM 250 MG ER TABLET PO SCH (20:07)
[2021-03-11] MEDS: ZOLPIDEM TARTRATE 10 MG TABLET PO PRN (21:43)
[2021-03-11] MEDS: LORazepam 2 MG TABLET PO PRN (23:56)
[2021-03-12 00:30] VITALS: BP 131/60
[2021-03-12] MEDS: FLUoxetine HCL 20 MG CAPSULE PO SCH (08:37)
[2021-03-12] MEDS: NALTREXONE HCL 50 MG TABLET PO SCH (08:37)
[2021-03-12] MEDS: MULTIVITAMINS WITH MINERALS, THERAPEUTIC TABLET PO SCH (08:37)
[2021-03-12] MEDS: BuPROPion HCL XL 150 MG ER TABLET PO SCH (08:37)
[2021-03-12 09:54] VITALS: BP 137/83
[2021-03-12 17:33] VITALS: BP 119/85
[2021-03-12] MEDS: OLANZapine 10 MG RAPDIS TABLET PO SCH (20:40)
[2021-03-12] MEDS: MELATONIN 5 MG TABLET PO SCH (20:40)
[2021-03-12] MEDS: MIRTAZAPINE 30 MG TABLET PO SCH (20:40)
[2021-03-12] MEDS: DIVALPROEX SODIUM 250 MG ER TABLET PO SCH (20:41)
[2021-03-12] MEDS: OMEGA-3/DHA/EPA/FISH OIL 1,000 MG CAPSULE PO SCH (20:41)
[2021-03-12] MEDS: ZOLPIDEM TARTRATE 10 MG TABLET PO PRN (22:00)
[2021-03-13 01:17] VITALS: BP 135/85
[2021-03-13 08:19] LABS: COVID AG,FIA SOURCE NASOPHARYNGEAL
[2021-03-13 08:57] VITALS: BP 105/60
[2021-03-13] MEDS: BuPROPion HCL XL 150 MG ER TABLET PO SCH (09:08)
[2021-03-13] MEDS: FLUoxetine HCL 20 MG CAPSULE PO SCH (09:08)
[2021-03-13] MEDS: MULTIVITAMINS WITH MINERALS, THERAPEUTIC TABLET PO SCH (09:08)
[2021-03-13] MEDS: NALTREXONE HCL 50 MG TABLET PO SCH (09:08)
[2021-03-13 16:24] VITALS: BP 115/80
[2021-03-13] MEDS ORDERED: OMEG-135 PO (20:38)
[2021-03-13] MEDS ORDERED: MELA5TAB40 PO (20:38)
[2021-03-13] MEDS ORDERED: MIRT30 PO (20:38)
[2021-03-13] MEDS ORDERED: FLUO20CA36 PO (20:38)
[2021-03-13] MEDS ORDERED: DIVA-85 PO (20:38)
[2021-03-13] MEDS ORDERED: BUPR-49 PO (20:38)
[2021-03-13] MEDS ORDERED: OLAN10TA26 PO (20:38)
[2021-03-13] MEDS ORDERED: NALT50TA PO (20:38)
[2021-03-13] MEDS: OMEGA-3/DHA/EPA/FISH OIL 1,000 MG CAPSULE PO SCH (20:42)
[2021-03-13] MEDS: DIVALPROEX SODIUM 250 MG ER TABLET PO SCH (20:42)
[2021-03-13] MEDS: OLANZapine 10 MG RAPDIS TABLET PO SCH (20:42)
[2021-03-13] MEDS: MIRTAZAPINE 30 MG TABLET PO SCH (20:43)
[2021-03-13] MEDS: MELATONIN 5 MG TABLET PO SCH (20:43)
[2021-03-14 00:29] VITALS: BP 124/83
[2021-03-14] MEDS ORDERED: FLUO20CA36 PO (05:29)
[2021-03-14] MEDS ORDERED: BUPR-93 PO (05:34)
[2021-03-14] MEDS ORDERED: MIRT30 PO (05:38)
[2021-03-14] MEDS ORDERED: OMEG-135 PO (05:38)
== END 2021-03-14 07:15 | disposition home or self-care (01) | DRG 750 ==
LOC: EMS 19:50 → B2S 22:00
PROVIDERS: ADMIT Psychiatry & Neurology Psychiatry; ATTEND Psychiatry & Neurology Psychiatry
DX: F25.1 Schizoaffective disorder, depressive type (principal); R45.851 Suicidal ideations; Z59.00 Homelessness unspecified; F15.10 Other stimulant abuse, uncomplicated; F11.90 Opioid use, unspecified, uncomplicated; F12.90 Cannabis use, unspecified, uncomplicated; F41.9 Anxiety disorder, unspecified; G47.00 Insomnia, unspecified; F10.10 Alcohol abuse, uncomplicated; K59.00 Constipation, unspecified; Z55.9 Problems related to education and literacy, unspecified; Z65.3 Problems related to other legal circumstances; Z87.891 Personal history of nicotine dependence; Z20.822 Contact with and (suspected) exposure to COVID-19
CPT/HCPCS: 80053; 80061; 80164; 83036; 84132; 84439; 84443; 85025; 87081; 99285; G0480; Q9967